=== PATIENT | male | born 1930 | race Caucasian/White ===

== ENCOUNTER → 2016-06-14 | Outpatient (CLI) | payer BC, MEDICARE ==
[~2016-06-14] MED LIST: ALLO100T PO; ASPI-535 PO; ASPI325T32 PO; CALC600T5 PO; CELE200C PO; EZET1TAB10 PO; HYDR-906 PO; MULT-761 PO; PANT40TA4 PO; PIOG30TA2 PO; RAMI10CA48 PO; SITA100T8 PO; TRAM50TA2 PO; TRIA1CAP PO; VIT500LI PO
== END | disposition home or self-care (01) ==
LOC: HKI 09:34
PROVIDERS: ATTEND Orthopaedic Surgery
DX: Z01.818 Encounter for other preprocedural examination (principal); M16.11 Unilateral primary osteoarthritis, right hip; M25.551 Pain in right hip
CPT/HCPCS: G0463

== ENCOUNTER 2016-06-20 05:53 | Inpatient (IN) | payer MEDICARE, BC ==
[2016-06-19 10:23] VITALS: BMI 23.7
[2016-06-20] VITALS (23 sets, daily range): BP systolic 91–146; BP diastolic 37–62; PULSE 55–76; RESP 10–19; Ht 179.1 cm; Wt 72.9 kg
[~2016-06-20] VITALS: Ht 179.1 cm; Wt 72.9 kg
[2016-06-20] MEDS ORDERED: VANCOMYCIN 1 GM/NS 250 ML X1 BEFORE INCISION IVPB ONE (06:00)
[2016-06-20] MEDS ORDERED: TRANEXAMIC ACID 750 MG in SOD CHLORIDE 0.9% 92.5 ML IV ONE (06:00)
[2016-06-20] MEDS ORDERED: BUPIVACAINE LIPOSOME/PF 266 MG/20 ML VIAL INFIL SCH (06:00)
[2016-06-20] MEDS ORDERED: oxyCODONE (CR) 10 MG TAB [oxyCONTIN] X1 DOSE PO ONE (06:00)
[2016-06-20] MEDS ORDERED: EXPAREL NOTE (BUPIVICAINE LIPOSOMAL) XX SCH (06:00)
[2016-06-20] MEDS ORDERED: PREGABALIN 300 MG PO X1 PO ONE (06:00)
[2016-06-20] MEDS ORDERED: traMADOL 50 MG TAB X 1 DOSE PO ONE (06:00)
[2016-06-20] MEDS ORDERED: CELECOXIB 400 MG PO X1 DOSE PO ONE (06:00)
[2016-06-20] MEDS ORDERED: TRANEXAMIC ACID 750 MG in SOD CHLORIDE 0.9% 100 ML IVPB SCH (06:00)
[2016-06-20] MEDS: LACTATED RINGER'S 1,000 ML IV SCH ×5 (06:14→23:00)
[2016-06-20] MEDS ORDERED: BACITRACIN 50000 UNITS INJ ONE (06:42)
[2016-06-20] MEDS ORDERED: SODIUM CL BACTERIOSTATIC 30 ML INJ ONE (06:49)
[2016-06-20] MEDS ORDERED: POLYMYXIN B 500000 UNIT INJ ONE (06:49)
[2016-06-20] MEDS ORDERED: HEPARIN 1000 UNITS/ML 10 ML INJ ONE (06:49)
[2016-06-20] MEDS ORDERED: VANCOMYCIN 1 GM INJ ONE (06:50)
[2016-06-20] MEDS ORDERED: MIDAZOLAM 1 MG/ML 2 ML INJ ONE (07:02)
[2016-06-20] MEDS ORDERED: FENTAnyl 50 MCG/ML VIAL ONE (07:02)
--- NOTE | 2016-06-20 07:12 | HPN ---
Date/Time of Note Date/Time of Note DATE: 06/20/16 TIME: 07:11 Interval H&P Admission Note Pt. seen H&P reviewed: No system changes No change from 06/13/16 H&P by ROBIN Reddy MD Jun 20, 2016 07:12
[2016-06-20] MEDS ORDERED: ASPI-535 PO (07:24)
[2016-06-20] MEDS ORDERED: VIT500LI PO (07:24)
[2016-06-20] MEDS ORDERED: MULT-761 PO (07:24)
[2016-06-20] MEDS ORDERED: CALC600T5 PO (07:24)
[2016-06-20] MEDS ORDERED: ALLO100T PO (07:24)
[2016-06-20] MEDS ORDERED: SITA100T8 PO (07:24)
[2016-06-20] MEDS ORDERED: RAMI10CA48 PO (07:24)
[2016-06-20] MEDS ORDERED: EZET1TAB10 PO (07:24)
[2016-06-20] MEDS ORDERED: PANT40TA4 PO (07:24)
[2016-06-20] MEDS ORDERED: PIOG30TA2 PO (07:24)
[2016-06-20] MEDS ORDERED: CELE200C PO (07:24)
[2016-06-20] MEDS ORDERED: TRIA1CAP PO (07:24)
[2016-06-20] MEDS ORDERED: PHENYLephrine (100 MCG/ML) 5ML SYG ONE (07:34)
[2016-06-20] MEDS ORDERED: MEPERIDINE 100 MG INJ ONE (07:44)
[2016-06-20] MEDS ORDERED: DEXAMETHASONE 4 MG/ML 1 ML INJ ONE (07:46)
[2016-06-20] MEDS: PAIN COCKTAIL - VANCOMYCIN IRR SCH ×14 (09:15→16:07)
[2016-06-20] MEDS ORDERED: ONDANSETRON 4 MG INJ ONE (09:22)
--- NOTE | 2016-06-20 09:26 | RADRPT ---
PROCEDURE: X-ray fluoroscopy guidance CLINICAL INDICATION: Pain TECHNIQUE: Fluoroscopic guidance was utilized for right hip replacement. COMPARISON: None available FINDINGS: Fluoroscopic guidance was provided. 0.6 minutes of fluoroscopy time was utilized for the procedure. 15 images were obtained during the procedure in progress. Cumulative dose is 7.06 mGy and 0.209 m Gym2. IMPRESSION: 1. X-ray fluoroscopic guidance, as above. RPTAT: QQ .Ramirez Laura MD, Date Time Electronically viewed and signed by .Ramirez Laura MD, MD on 06/20/2016 09:26 .R/
[2016-06-20] MEDS ORDERED: FENTAnyl 50 MCG/ML VIAL IV PRN (09:30)
[2016-06-20] MEDS ORDERED: ONDANSETRON 4 MG INJ IV PRN ×2 (09:30→10:00)
[2016-06-20] MEDS ORDERED: HYDROmorphONE (0.2 MG/ML) 10ML SYG IV PRN ×2 (09:30)
[2016-06-20] MEDS ORDERED: METOCLOPRAMIDE 10 MG INJ IV PRN (09:30)
[2016-06-20] MEDS ORDERED: DIPHENHYDRAMINE 50 MG INJ IV PRN (09:30)
[2016-06-20] MEDS ORDERED: ETOMIDATE 20 MG INJ ONE (09:31)
[2016-06-20] MEDS ORDERED: LIDOCAINE 2% (SDV) 5 ML INJ ONE (09:31)
[2016-06-20] MEDS ORDERED: ROCURONIUM 50 MG INJ ONE (09:31)
[2016-06-20] MEDS ORDERED: CEFAZOLIN 1 GM INJ ONE (09:32)
[2016-06-20] MEDS ORDERED: PROPOFOL 100 ML ONE (09:42)
[2016-06-20] MEDS ORDERED: HYDROmorphONE 1 MG/ML SYG IV PRN (10:00)
[2016-06-20] MEDS ORDERED: BISACODYL 10 MG SUPP PR PRN (10:00)
[2016-06-20] MEDS ORDERED: oxyCODONE 5 MG TAB PO PRN ×2 (10:00)
[2016-06-20] MEDS ORDERED: NACL 0.9% 3 ML SYG IV SCH (10:00)
[2016-06-20] MEDS ORDERED: MAGNESIUM HYDROXIDE 30ML CUP PO PRN (10:00)
[2016-06-20] MEDS ORDERED: NA PHOSPHATE/BIPHOS 133 ML ENEMA PR PRN (10:00)
[2016-06-20] MEDS ORDERED: DIPHENHYDRAMINE 25 MG CAP PO PRN (10:00)
--- NOTE | 2016-06-20 10:12 | OPPN ---
Date/Time of Note Date/Time of Note DATE: 06/20/16 TIME: 10:10 Operative/Procedure Note Dictation # [id number] Pre-Operative Diagnosis Right Hip OA Post-Operative Diagnosis Same Procedure Right Anterior JUSTEN Surgeon: ROBIN TRAN MD Texture Artist: NADIRA DONOHUE PA-C Anesthesiologist: RADHA BORRERO MD Findings Severe OA Blood Usage/Administration None Implants/Grafts Depuy JUSTEN Estimated blood loss: 250 - 300 ml's Drains Hemovac x 1 Specimens Femoral Head Complications: None Anesthesia type: spinal ROBIN TRAN MD Jun 20, 2016 10:12
[2016-06-20] MEDS ORDERED: ASPIRIN (EC) 325 MG TAB PO ONE (10:30)
[2016-06-20 10:33] LABS: HEMATOCRIT 37.3 % (42.0-52.0); HEMOGLOBIN 11.9 g/dl (14.0-18.0)
[2016-06-20 10:34] LABS: POTASSIUM 4.9 mmol/L (3.5-5.1)
[2016-06-20 10:41] LABS: CALCIUM 9.1 mg/dl (8.4-10.2); CREATININE 1.59 mg/dl (0.61-1.24)
--- NOTE | 2016-06-20 10:45 | PN ---
Date/Time of Note Date/Time of Note DATE: 06/20/16 TIME: 10:43 Assessment/Plan Lines/Catheters IV Catheter Type (from Nrsg): Peripheral IV Assessment/Plan Assessment/Plan Stable in PACU, s/p right anterior JUSTEN -cont Vanco -ASA/SCDs for DVT prophylaxis -pain meds -OOB with PT -monitor drain -check AM labs -remove treadwell in AM XR of the right hip is pending at this time Subjective 24 Hr Interval Summary Doing well in PACU. Denies pain. Moving all extremities. Exam/Review of Systems Vital Signs Vitals Vital Signs Date Time Temp Pulse Resp B/P Pulse Ox O2 Delivery O2 Flow Rate FiO2 06/20/16 10:25 56 12 116/44 100 Mask 10.0 06/20/16 10:06 98.0 Exam Free Text/Dictation Dressing dry Incision clean, dry, and intact without redness or drainage 5/5 Quadriceps, Tibialis Anterior, EHL, Gastroc, Soleus, Peroneals Normal sensation Palpable DT/PT, CR <2 sec No distal edema; Results Result Diagram: 06/20/16 1015 06/20/16 1015 NADIRA DONOHUE PA-C Jun 20, 2016 10:45
--- NOTE | 2016-06-20 11:36 | RADRPT ---
PROCEDURE: XR pelvis. CLINICAL INDICATION: Postoperative evaluation TECHNIQUE: AP view of the pelvis was performed. COMPARISON: None. FINDINGS: Right hip arthroplasty is in place, in anatomic position. There is no acute fracture or dislocation . Normal postoperative changes are identified in the adjacent soft tissues. Surgical drain is in p lace. There is mild joint space narrowing and osteophyte formation involving the left hip. No radi odense foreign body is identified. There is degenerative spondylosis of the lower lumbar spine. IMPRESSION: 1. Unremarkable right hip arthroplasty postoperative appearance, as above. RPTAT: QQ .Ramirez Laura MD, MD Date Time Electronically viewed and signed by .Ramirez Laura MD, on 06/20/2016 11:36 .R/
--- NOTE | 2016-06-20 11:49 | OPR ---
DATE OF OPERATION: 06/20/2016 PREOPERATIVE DIAGNOSIS: Right hip osteoarthritis. POSTOPERATIVE DIAGNOSIS: Right hip osteoarthritis. OPERATION PERFORMED: Right anterior total hip arthroplasty. SURGEON: Robin Brito MD DISTRICT CAPTAIN: CHRISTOPHER Berrios COMPONENTS USED: DePuy size 52 mm Gription Dodge cup, 52/36 neutral AltrX polyethylene liner, size 5 standard Actis stem and a 36 +1.5 ceramic head. ANESTHESIA: Spinal plus general endotracheal intubation plus periarticular injection. ANESTHESIOLOGIST: Dr. Fraga. ESTIMATED BLOOD LOSS: 300 mL INTRAVENOUS FLUIDS: 1600 mL crystalloid. SPECIMENS: Femoral head. DRAINS: Hemovac x1. COMPLICATIONS: None. DISPOSITION: The patient tolerated the procedure well and was taken to the recovery room in stable condition. INDICATIONS: The patient is an 86-year-old gentleman who has had progressive worsening pain in the right hip with radiographic evidence of severe osteoarthritis. He has failed nonsurgical means of treatment to control his pain including activity modifications, pain medications and ambulatory assist devices. Despite these measures, he has had worsening pain and I felt he would benefit from a total hip arthroplasty through an anterior approach. The risks, benefits, and alternatives of the procedure were explained in detail to the patient. I explained the risks of the surgery to include, but not be limited to: bleeding and possible need for blood transfusion; infection; pain; stiffness; neurovascular injury with possible numbness, weakness, and/or paralysis anywhere from the hip down to the toes; fracture; instability; dislocation; leg length inequality; wear and/or loosening of the prosthesis and possible need for future revision; blood clots; pulmonary embolism; and anesthetic complications such as heart attack, stroke, GI bleed, pneumonia, and/ or . Ample time was allowed for the patient to ask questions, all of which were addressed and answered. The patient understood the risks involved and wished to proceed. Informed consent was signed prior to the procedure. PROCEDURE: The patient's right hip was initialed with a marking pen in the preoperative area to identify the correct operative site. The patient was brought to the operating room and transferred from the [facility] to the [facility] where a spinal anesthetic was administered. The patient was then anesthetized and intubated. A Bryant catheter was placed. Both feet were placed into well padded boots which were then placed into the leg holders of the traction booms. A timeout was performed to confirm that the right side was the correct operative site. The patient was given 2 g of intravenous Ancef within one hour prior to the procedure. The operative hip was prepped and draped in the usual sterile fashion. A 10 cm oblique incision was made over the anterior aspect of the hip and carried down through subcutaneous tissue and fat with sharp dissection. The tensor fascia tee was incised along the length of the wound. The tensor fascia muscle was retracted laterally and the sartorius medially. The anterior circumflex vessels were identified and tied off with 2-0 silk suture and coagulated with the Tissue Link lead android developer. The rectus femoris was elevated off the anterior capsule and an anterior capsulectomy performed. A femoral neck osteotomy was made and the head removed from the acetabulum. The acetabulum was denuded of cartilage circumferentially, as was the femoral head. Retractors were placed around the acetabulum. The remnants of the labrum and ligamentum teres were excised. I reamed the acetabulum to the medial wall and then went into an anatomic position and increased the reamer size in 2 mm increments until I got a good bite and was down to bleeding subchondral bone. The Dodge cup was opened and impacted into the acetabulum and sat flush circumferentially, getting a good bite. C-arm imaging showed it had about 40 to 45 degrees of abduction and 20 degrees of anteversion. The real liner was opened and impacted into the acetabulum and sat flush circumferentially. Attention was turned towards the femur. The operative leg was carefully lowered to the floor with the leg adducted. The foot was then externally rotated to approximately 110 degrees. A posteromedial release was performed to optimize exposure. The femoral hook was placed underneath the proximal femur and the hydraulic lift was then used to elevate the femur up out of the wound. The cookie cutter osteotome was used to remove the remaining overhanging greater trochanter. The femur was then broached, going up in one size increments until it sat flush with the neck cut and a stable fit was achieved. The trial neck and head were assembled and reduced into the acetabulum. Fluoroscopic imaging showed the components to be in good position and the leg lengths and offsets to be equal. At this point, the trial was dislocated and the trial broach removed. The canal was irrigated and dried. The real stem was opened and impacted into the femur. The trunnion was irrigated and dried, and the real femoral head was impacted onto the trunnion, and reduced into the acetabulum. The soft tissues were infiltrated with a mixture of 150 mg of 0.5% Bupivacaine, 8 mg of Duramorph, 300 mcg of epinephrine, 30 mg of Toradol, 100 mcg of clonidine, 750 mg of cefuroxime and 86 mL of normal saline, followed by an injection of 266 mg of liposomal Bupivacaine. At this point the hip was irrigated with a mixture of betadine/saline and then antibiotic saline with pulsatile lavage. A Hemovac drain was placed in the deep portion of the wound and brought out the anterolateral thigh. There was good hemostasis. The tensor fascia tee was repaired with a running #1 Vicryl. The deep fat layer was irrigated and closed with 2-0 Stratafix and the subcutaneous layer closed with 3 -0 Stratafix and the skin was sealed with Prineo Dermabond. The drain was secured with 3-0 nylon. The sponge and needle counts were correct at the end of the case. The wound was covered with an occlusive dressing. The patient was awakened, extubated, and taken to the recovery room in stable condition. Dictated By: ROBIN ESCOBAR/ELIDA Conf#: [id number] DID#: [id number] MTDD
--- NOTE | 2016-06-20 13:05 | CONS ---
DATE OF ADMISSION: 06/20/2016 DATE OF CONSULTATION: 06/20/2016 TYPE OF CONSULTATION: Postoperative. Thank you very much for allowing me to evaluate this 86-year-old male who just underwent right hip a rthroplasty. HISTORICAL EVENTS: As you well know, this patient has had progressive disabling pain involving his right hip, and for this elected to proceed with surgery. Postoperatively, in recovery, he denies co ugh, wheezing, shortness of breath, nausea, vomiting, abdominal or chest pain. ALLERGIES: INCLUDE: 1. NIACIN. 2. PENICILLIN. 3. SIMVASTATIN. 4. EZETIMIBE. PAST MEDICAL HISTORY: Includes: 1. Tissue aortic valve replacement. 2. Diabetes type 2. 3. Hypertension. 4. Mild renal insufficiency. 5. Hyperuricemia 6. Status post TURP. 7. Monoclonal gammopathy. 8. History of right bundle branch block pattern. 9. History of asthma. 10. Status post right carpal tunnel release. SOCIAL HISTORY: Does not drink or use alcohol. MEDICATIONS 1. Allopurinol 100 mg per day. 2. Januvia 100 mg per day. 3. Protonix 40 mg per day. 4. Actos 30 mg per day. 5. Ramipril 10 mg per day. 5. Simvastatin 40 mg per day. 6. Triamterene 37.5/25 mg daily. 7. Aspirin 81 day. PHYSICAL EXAMINATION: GENERAL: [place] male in no acute distress. VITAL SIGNS: BP 128/80, pulse 70, respirations are 20, he was afebrile. EYES: Extraocular muscles were full. NOSE, MOUTH, AND THROAT: Normal. NECK: Supple. There was no jugular venous distention, thyroid enlargement or adenopathy. Carotids 2+. LUNGS: Clear. HEART: Rhythm regular, no murmur. No third or fourth sound. ABDOMEN: Nontender. Liver and spleen were not palpable. No masses or tenderness were noted. EXTREMITIES: No edema, no calf tenderness. NEUROLOGIC: No lateralizing motor weakness. IMPRESSION: 1. Stable postop right hip replacement. 2. History of diabetes. Will continue his diabetic medications and monitor sugars a.c. t.i.d. usin g short-acting insulin to cover elevated sugars. 3. Hyperlipidemia to continue statin. 4. We will follow along daily for signs and symptoms of thromboembolic disease despite an appropria te thrombosis prophylaxis. Dictated By: LEIGHA YORK MD MR/NTS Conf#: [id number] DID#: [id number] CC: ROBIN TRAN MD;*[facility]*
[2016-06-20] MEDS: ACETAMINOPHEN 1000MG/100ML IV 100 ML IVPB SCH ×3 (15:11→23:55)
[2016-06-20] MEDS: traMADol 50 MG TAB PO SCH ×2 (15:11→18:08)
[2016-06-20] MEDS: PANTOPRAZOLE (EC) 40 MG TAB PO SCH (18:08)
[2016-06-20] MEDS: INSULIN ASPART [NOVOLOG] 3 ML PEN SC SCH (18:12)
[2016-06-20] MEDS: VANCOMYCIN 1 GM (PMX) 250 ML IVPB SCH (20:28)
[2016-06-20] MEDS: ATORVASTATIN 20 MG TAB PO SCH (21:17)
[2016-06-20] MEDS: DOCUSATE SODIUM 100 MG CAP PO SCH (21:17)
[2016-06-20] MEDS: PREGABALIN 25 MG CAP PO SCH (21:18)
[2016-06-21] VITALS: BP 104/51; RESP 18
[2016-06-21] MEDS: LACTATED RINGER'S 1,000 ML IV SCH ×6 (01:59→22:00)
[2016-06-21 05:21] LABS: POTASSIUM 4.9 mmol/L (3.5-5.1)
[2016-06-21 05:23] VITALS: BP 105/50; PULSE 63; RESP 20
[2016-06-21 05:24] LABS: CREATININE 1.68 mg/dl (0.61-1.24)
[2016-06-21 05:25] LABS: CALCIUM 8.8 mg/dl (8.4-10.2); MAGNESIUM 1.9 mg/dl (1.7-2.5)
[2016-06-21 05:27] LABS: HEMATOCRIT 34.6 % (42.0-52.0)
[2016-06-21] MEDS: PANTOPRAZOLE (EC) 40 MG TAB PO SCH ×2 (05:29→18:21)
[2016-06-21] MEDS: ACETAMINOPHEN 1000MG/100ML IV 100 ML IVPB SCH (05:29)
[2016-06-21] MEDS: traMADol 50 MG TAB PO SCH ×5 (05:29→23:53)
[2016-06-21] MEDS ORDERED: GLUCAGON 1 MG INJ IM PRN (07:00)
[2016-06-21] MEDS ORDERED: GLUCOSE GEL 15 GRAM TUBE PO PRN ×2 (07:00)
[2016-06-21] MEDS ORDERED: GLUCOSE GEL 15 GRAM TUBE BUCCAL PRN (07:00)
[2016-06-21] MEDS ORDERED: DEXTROSE 50% 50 ML SYRINGE IV PRN ×2 (07:00)
[2016-06-21 07:19] LABS: ADD UMIC YES; URINE BILIRUBIN (Dip) NEGATIVE (NEGATIVE); URINE BLOOD (Dip) 1+ (NEGATIVE); URINE COLOR LT. YELLOW (YELLOW); URINE GLUCOSE (Dip) NEGATIVE (NEGATIVE); URINE KETONES (Dip) NEGATIVE (NEGATIVE); URINE LEUKOCYTE ESTERASE (Dip) NEGATIVE (NEGATIVE); URINE NITRITE (Dip) NEGATIVE (NEGATIVE); URINE TOTAL PROTEIN (Dip) NEGATIVE (NEGATIVE); URINE UROBILINOGEN (Dip) 0.2 E.U./dL (0.1-1.0)
[2016-06-21] MEDS: INSULIN ASPART [NOVOLOG] 3 ML PEN SC SCH ×3 (07:20→17:25)
--- NOTE | 2016-06-21 07:49 | PDOCDIS ---
Discharge Instructions DIAGNOSIS Discharge Diagnosis: s/p right anterior JUSTEN CONDITION Patient Condition: Good HOME CARE INSTRUCTIONS: Diet Instructions: RegularSpecial Diet: CLEAR ACTIVITY: Activity Restrictions: Slowly Increase Activity Rest between Activity Avoid heavy lifting Do not operate Machinery Do not operate Power Tool Avoid Heavy Housework Keep Limb Elevated Bathing Restrictions: Shower FOLLOW UP/APPOINTMENTS Appointments follow up with Dr. Brito in the office on 07/01/16 OTHER ORDERS: Other Orders: S/P Anterior JUSTEN Physical Therapy: Three times per week at home x 2 weeks Daily in Rehab/SNF (if applicable) WB STATUS: WBAT Strengthening exercises for both upper and un-operated lower extremities. 1. Gait training with front wheeled walker 2. Wide base gait, no pivot turns. 3. Abductor strengthening. 4. Quadriceps and hamstring strengthening. 5. May switch to cane in contra lateral hand 6 weeks after surgery. 6. Physical Therapy can open case if nursing is not available. 7. Ice Packs while at rest to surgical wound for 20 minutes, 3 times/day. 8. Patient requires mobile SCDs to reduce risk of developing DVT following JUSTEN. Patient will use the mobile SCDs for 30 days postoperatively. Hip Precautions: No posterior hip precautions. Bathing assistance by home health aide twice weekly if Medicare patient. Occupational Therapy: Evaluation for assistive devices and ADL training. Wound Care: Keep incision dry & covered with Tegaderm until first visit with Dr. Brito Anticoagulation Orders: Enteric Coated Aspirin 325 mg po bid x 6 weeks from date of surgery Follow-up:Call for an appointment with Dr. Brito in 1 week after discharged from hospital at DME Orders: NEELAM, 3-in-1 Commode, Mobile SCDs NADIRA DONOHUE PA-C Jun 21, 2016 07:49
[2016-06-21] MEDS ORDERED: ASPI325T32 PO (07:51)
[2016-06-21] MEDS ORDERED: HYDR-906 PO (07:51)
[2016-06-21] MEDS ORDERED: TRAM50TA2 PO (07:51)
[2016-06-21 08:25] VITALS: BP 111/52; RESP 18
--- NOTE | 2016-06-21 08:32 | PN ---
Date/Time of Note Date/Time of Note DATE: 06/21/16 TIME: 08:31 Assessment/Plan Lines/Catheters IV Catheter Type (from Nrsg): Peripheral IV Bryant in Place (from Nrsg): Yes Assessment/Plan Assessment/Plan Stable POD #1 s/p right anterior JUSTEN -d/c abx -pain meds -ASA/SCDs -OOB with PT -drain removed -check AM labs -d/c planning. Will likely go to [facility] Subjective 24 Hr Interval Summary Doing well. No acute overnight events. Denies significant pain. Moving all extremities. VSS, afebrile Exam/Review of Systems Vital Signs Vitals Vital Signs Date Time Temp Pulse Resp B/P Pulse Ox O2 Delivery O2 Flow Rate FiO2 06/21/16 08:25 97.8 62 18 111/52 99 06/21/16 05:23 Nasal Cannula 2.0 Intake and Output 06/20/16 06/20/16 06/21/16 15:00 23:00 07:00 Intake Total 1750 ml 1270 ml 1150 ml Output Total 790 ml 430 ml 920 ml Balance 960 ml 840 ml 230 ml Results Result Diagram: 06/21/16 0426 06/21/16 0426 NADIRA DONOHUE PA-C Jun 21, 2016 08:32
[2016-06-21] MEDS: VANCOMYCIN 1 GM (PMX) 250 ML IVPB SCH (08:54)
[2016-06-21] MEDS: CELECOXIB 200 MG CAP PO SCH (08:57)
[2016-06-21] MEDS: PIOGLITAZONE 30 MG TAB PO SCH (08:57)
[2016-06-21] MEDS: PREGABALIN 25 MG CAP PO SCH ×2 (08:57→21:08)
[2016-06-21] MEDS: DOCUSATE SODIUM 100 MG CAP PO SCH ×2 (08:57→20:59)
[2016-06-21] MEDS: ASPIRIN (EC) 325 MG TAB PO SCH ×2 (08:57→20:59)
[2016-06-21] MEDS: CALCIUM CARBONATE 1.25 GM TAB PO SCH (08:57)
[2016-06-21] MEDS: EZETIMIBE 10 MG TAB PO SCH (08:57)
[2016-06-21] MEDS: ALLOPURINOL 100 MG TAB PO SCH (08:57)
[2016-06-21] MEDS: BENAZEPRIL 20 MG TAB PO SCH (09:00)
[2016-06-21] MEDS ORDERED: [UNRECOGNIZED DRUG - OTHER] PO SCH (09:00)
--- NOTE | 2016-06-21 13:57 | CONS ---
Date/Time of Note Date/Time of Note DATE: 06/21/16 TIME: 13:51 Assessment/Plan Assessment/Plan Chief Complaint/Hosp Course 1. he is 1 day post op a R JUSTEN , he is doing well . 2. CKD , renal function is stable . 3. h/o peripheral neuropathy . 4. S/P AVR . Problems: Consultation Date/Type/Reason Admit Date/Time Jun 20, 2016 at 05:53 Initial Consult Date 24 HR Interval Summary Free Text/Dictation He is 1 day post op a R JUSTEN . He is doing well . He denies pain . Constitutional: improved, no complaints Exam/Review of Systems Vital Signs Vitals Vital Signs Date Time Temp Pulse Resp B/P Pulse Ox O2 Delivery O2 Flow Rate FiO2 06/21/16 08:25 97.8 62 18 111/52 99 06/21/16 05:23 Nasal Cannula 2.0 Intake and Output 06/20/16 06/20/16 06/21/16 15:00 23:00 07:00 Intake Total 1750 ml 1270 ml 1150 ml Output Total 790 ml 430 ml 920 ml Balance 960 ml 840 ml 230 ml Exam Constitutional: alert, oriented, well developed Psych: nl mood/affect, no complaints Respiratory: clear to auscultation, normal air movement Cardiovascular: nl pulses, regular rate and rhythm Gastrointestinal: soft Musculoskeletal: nl extremities to inspection Results Result Diagram: 06/21/16 0426 06/21/16 0426 Results 24 hrs Laboratory Tests Test 06/20/16 17:20 06/21/16 04:26 06/21/16 05:00 06/21/16 08:06 Bedside Glucose 164 96 Anion Gap 10 Blood Urea Nitrogen 33 H Calcium Level 8.8 Carbon Dioxide Level 29 Chloride Level 102 Creatinine 1.68 H Glucose Level 103 # Hematocrit 34.6 L Hemoglobin 11.0 L Magnesium Level 1.9 Phosphorus Level 4.0 Potassium Level 4.9 Sodium Level 136 Urine Bilirubin NEGATIVE Urine Clarity CLEAR Urine Color LT. YELLOW Urine Epithelial Cells RARE Urine Glucose NEGATIVE Urine Hemoglobin 1+ H Urine Ketones NEGATIVE Urine Leukocyte Esterase NEGATIVE Urine Microscopic RBC 2-5 Urine Microscopic WBC 0-2 Urine Nitrite NEGATIVE Urine Specific Plummer <=1.005 L Urine Total Protein NEGATIVE Urine Urobilinogen 0.2 E.U./dL Urine pH 5.5 Test 06/21/16 12:20 Bedside Glucose 110 Medications Medications Current Medications Lactated Ringer's (Lr) 1,000 ml @ 100 mls/hr Q10H IV Last administered on 23:00; Admin Dose 100 MLS/HR; Start 06/20/16 at 06:00 Miscellaneous Information 1 ea NOTE XX ; Start 06/20/16 at 06:00; Stop 06/23/16 at 05:59 Allopurinol (Zyloprim) 100 mg DAILY PO Last administered on 06/21/16 08:57; Admin Dose 100 MG; Start 06/21/16 at 09:00 Pioglitazone HCl (Actos) 30 mg DAILY PO Last administered on 06/21/16 08:57; Admin Dose 30 MG; Start 06/21/16 at 09:00 Calcium Carbonate (Oyster Shell Calcium) 1.25 gm DAILY PO Last administered on 06/21/16 08:57; Admin Dose 1.25 GM; Start 06/21/16 at 09:00 Atorvastatin Calcium (Lipitor) 20 mg DAILY@21 PO Last administered on 06/20/16 21:17; Admin Dose 20 MG; Start 06/20/16 at 21:00 Benazepril HCl 20 mg 20 mg DAILY PO ; Start 06/21/16 at 09:00 Lactated Ringer's (Lr) 1,000 ml @ 125 mls/hr Q8H IV Last administered on 10:45; Admin Dose 125 MLS/HR; Start 06/20/16 at 09:59 Celecoxib (Celebrex) 200 mg DAILY PO Last administered on 06/21/16 08:57; Admin Dose 200 MG; Start 06/21/16 at 09:00 Tramadol HCl (Ultram) 50 mg Q6 PO Last administered on 06/21/16 12:28; Admin Dose 50 MG; Start 06/20/16 at 12:00; Stop 06/23/16 at 11:59 Oxycodone HCl (Roxicodone) 5 mg Q4H PRN PO PAIN LEVEL 1-3; Start 06/20/16 at 10: 00 Oxycodone HCl (Roxicodone) 10 mg Q4H PRN PO PAIN LEVEL 4-7; Start 06/20/16 at 10 :00 Hydromorphone HCl (Dilaudid) 1 mg Q3H PRN IV PAIN LEVEL 8-10; Start 06/20/16 at 10:00 Ondansetron HCl (Zofran Inj) 4 mg Q6H PRN IV NAUSEA AND/OR VOMITING; Start 06/20 at 10:00 Bisacodyl (Dulcolax Supp) 10 mg Q12H PRN MA CONSTIPATION; Start 06/20/16 at 10: 00 Magnesium Hydroxide (Milk Of Mag) 30 ml BID PRN PO CONSTIPATION; Start 06/20/16 at 10:00 Sodium Biphosphate/ Sodium Phosphate (Fleet Enema) 133 ml DAILY PRN MA CONSTIPATION; Start 06/20/16 at 10:00 Docusate Sodium (Colace) 100 mg BID PO Last administered on 06/21/16 08:57; Admin Dose 100 MG; Start 06/20/16 at 21:00 Diphenhydramine HCl (Benadryl) 25 mg Q6H PRN PO PRURITUS; Start 06/20/16 at 10: 00 Aspirin (Ecotrin) 325 mg BID PO Last administered on 06/21/16 08:57; Admin Dose 325 MG; Start 06/21/16 at 09:00 Pregabalin (Lyrica) 50 mg BID PO Last administered on 06/21/16 08:57; Admin Dose 50 MG; Start 06/20/16 at 21:00 Pantoprazole (Protonix Tab) 40 mg BID@06,18 PO Last administered on 06/21/16 05:29; Admin Dose 40 MG; Start 06/20/16 at 18:00 EZETIMIBE (Zetia) 10 mg DAILY PO Last administered on 06/21/16 08:57; Admin Dose 10 MG; Start 06/21/16 at 09:00 Miscellaneous Information 1 ea NOTE XX ; Start 06/21/16 at 07:00 Glucose (Glutose) 15 gm Q15M PRN PO DECREASED GLUCOSE; Start 06/21/16 at 07:00 Glucose (Glutose) 22.5 gm Q15M PRN PO DECREASED GLUCOSE; Start 06/21/16 at 07: 00 Dextrose (D50w Syringe) 25 ml Q15M PRN IV DECREASED GLUCOSE; Start 06/21/16 at 07:00 Dextrose (D50w Syringe) 50 ml Q15M PRN IV DECREASED GLUCOSE; Start 06/21/16 at 07:00 Glucagon (Glucagen) 1 mg Q15M PRN IM DECREASED GLUCOSE; Start 06/21/16 at 07:00 Glucose (Glutose) 15 gm Q15M PRN BUCCAL DECREASED GLUCOSE; Start 06/21/16 at 07 :00 PARAMJIT NEVAREZ MD Jun 21, 2016 13:57
[2016-06-21 19:00] VITALS: BP 115/56; RESP 19
[2016-06-21] MEDS: ATORVASTATIN 20 MG TAB PO SCH (21:00)
[2016-06-22] MEDS: LACTATED RINGER'S 1,000 ML IV SCH ×3 (01:40→09:59)
[2016-06-22 05:48] LABS: HEMATOCRIT 34.5 % (42.0-52.0); HEMOGLOBIN 10.9 g/dl (14.0-18.0)
[2016-06-22 06:06] LABS: POTASSIUM 4.3 mmol/L (3.5-5.1)
[2016-06-22 06:09] LABS: CREATININE 1.58 mg/dl (0.61-1.24)
[2016-06-22 06:10] LABS: CALCIUM 8.8 mg/dl (8.4-10.2)
[2016-06-22] MEDS: PANTOPRAZOLE (EC) 40 MG TAB PO SCH (07:01)
[2016-06-22] MEDS: traMADol 50 MG TAB PO SCH ×2 (07:01→12:13)
[2016-06-22] MEDS: INSULIN ASPART [NOVOLOG] 3 ML PEN SC SCH ×2 (07:20→11:10)
[2016-06-22 07:21] VITALS: BP 131/63; RESP 18
--- NOTE | 2016-06-22 08:11 | PN ---
Date/Time of Note Date/Time of Note DATE: 06/22/16 TIME: 08:01 Assessment/Plan VTE Prophylaxis VTE Prophylaxis Intervention: ambulation (With walker), SCD's, other (Aspirin 325 mg twice daily.) Lines/Catheters IV Catheter Type (from Nrsg): Saline Lock Bryant in Place (from Nrsg): No Assessment/Plan Assessment/Plan -Pain Meds as needed -Dress change performed today -ASA for DVT Prophylaxis x 6 weeks outpatient discussed. -Continue monitoring as outpatient on discharge. Will follow up in clinic [address] Brito for removal of Prineo -Follow-up at scheduled postop outpatient appointment or sooner if there is any issue. -Tegaderm dressings given with specific instructions to use as outpatient to keep wound dry while showering until Prineo is moved in around 10 days. -Hip precautions discussed -Patient Stable -Discharge to [facility] pending clearance from internal medicine. Orders given to give patient rectal suppository so patient can have bowel movement. Patient was given Ambien, per patient account and nurse was instructed to discontinue Ambien immediately. Subjective 24 Hr Interval Summary 86-year-old male postop day 2. No pain complaints. Patient is up and out of bed with front wheeled walker. Denies any calf pain, chest pain or shortness of breath. Patient doing well. Patient does state however, he has not had bowel movement since 06/19/2016. Patient confirms that he has had flatulence. Had episode of insomnia last night in which she states that he was given Ambien. Ambien was not effective. Constitutional: BM (Denies BM since 06/19/16), ambulates, flatus Pain Control: well controlled Exam/Review of Systems Vital Signs Vitals Vital Signs Date Time Temp Pulse Resp B/P Pulse Ox O2 Delivery O2 Flow Rate FiO2 06/22/16 07:21 98.0 65 18 131/63 96 06/21/16 05:23 Nasal Cannula 2.0 Intake and Output 06/21/16 06/21/16 06/22/16 15:00 23:00 07:00 Intake Total 250 ml 2580 ml 300 ml Output Total 550 ml 1000 ml Balance 250 ml 2030 ml -700 ml Exam Free Text/Dictation -Hemovac: Removed -Incision: Clean, Dry and Intact without any redness or drainage. Prineo is stable/intact -Thigh soft -5/5 Quadriceps, Tibialis Anterior, EHL Gastrocnemius/Soleus and Peroneals -Normal Sensation -Palpable DP/PT, Capillary Refill <2 secs -No Distal Edema -Negative Tisha Sign/No calf pain -Toes Freely Movable No tenderness to palpation throughout the abdomen. Nondistended abdomen as it is soft. Results Result Diagram: 06/22/1641906/22/16419 Copies To: CC: ROBIN BRITO MD, KERBY PA-C Jun 22, 2016 08:11
[2016-06-22] MEDS: PIOGLITAZONE 30 MG TAB PO SCH (08:36)
[2016-06-22] MEDS: ASPIRIN (EC) 325 MG TAB PO SCH (08:37)
[2016-06-22] MEDS: CELECOXIB 200 MG CAP PO SCH (08:37)
[2016-06-22] MEDS: DOCUSATE SODIUM 100 MG CAP PO SCH (08:37)
[2016-06-22] MEDS: ALLOPURINOL 100 MG TAB PO SCH (08:38)
[2016-06-22] MEDS: EZETIMIBE 10 MG TAB PO SCH (08:38)
[2016-06-22] MEDS: CALCIUM CARBONATE 1.25 GM TAB PO SCH (08:38)
[2016-06-22] MEDS: PREGABALIN 25 MG CAP PO SCH (08:38)
[2016-06-22] MEDS: BENAZEPRIL 20 MG TAB PO SCH (08:38)
--- NOTE | 2016-06-22 13:04 | CONS ---
Date/Time of Note Date/Time of Note DATE: 06/22/16 TIME: 13:03 Assessment/Plan Assessment/Plan Additional Assessment/Plan 1. POD2 - R JUSTEN , doing well 2. CKD - renal function stable. 3. h/o peripheral neuropathy . 4. S/P AVR 5. stable for discharge to [facility] from medical standpoint. Consultation Date/Type/Reason Admit Date/Time Jun 20, 2016 at 05:53 Initial Consult Date 24 HR Interval Summary Free Text/Dictation no complaints, had a BM this morning and urinating well. Constitutional: no complaints Exam/Review of Systems Vital Signs Vitals Vital Signs Date Time Temp Pulse Resp B/P Pulse Ox O2 Delivery O2 Flow Rate FiO2 06/22/16 07:21 98.0 65 18 131/63 96 06/21/16 05:23 Nasal Cannula 2.0 Intake and Output 06/21/16 06/21/16 06/22/16 15:00 23:00 07:00 Intake Total 250 ml 2580 ml 300 ml Output Total 550 ml 1000 ml Balance 250 ml 2030 ml -700 ml Exam Constitutional: alert, oriented, well developed Respiratory: clear to auscultation, normal air movement Cardiovascular: nl pulses, regular rate and rhythm Results Result Diagram: 06/22/16 0420 06/22/16 0420 Results 24 hrs Laboratory Tests Test 06/21/16 18:02 06/21/16 21:00 06/22/16 04:20 06/22/16 08:35 Bedside Glucose 94 143 106 Anion Gap 10 Blood Urea Nitrogen 35 H Calcium Level 8.8 Carbon Dioxide Level 30 Chloride Level 102 Creatinine 1.58 H Glucose Level 94 Hematocrit 34.5 L Hemoglobin 10.9 L Potassium Level 4.3 Sodium Level 138 Test 06/22/16 12:10 Bedside Glucose 131 Medications Medications Current Medications Lactated Ringer's (Lr) 1,000 ml @ 100 mls/hr Q10H IV Last administered on 23:00; Admin Dose 100 MLS/HR; Start 06/20/16 at 06:00 Miscellaneous Information 1 ea NOTE XX ; Start 06/20/16 at 06:00; Stop 06/23/16 at 05:59 Allopurinol (Zyloprim) 100 mg DAILY PO Last administered on 06/22/16 08:38; Admin Dose 100 MG; Start 06/21/16 at 09:00 Pioglitazone HCl (Actos) 30 mg DAILY PO Last administered on 06/22/16 08:36; Admin Dose 30 MG; Start 06/21/16 at 09:00 Calcium Carbonate (Oyster Shell Calcium) 1.25 gm DAILY PO Last administered on 06/22/16 08:38; Admin Dose 1.25 GM; Start 06/21/16 at 09:00 Atorvastatin Calcium (Lipitor) 20 mg DAILY@21 PO Last administered on 21:00; Admin Dose 20 MG; Start 06/20/16 at 21:00 Benazepril HCl 20 mg 20 mg DAILY PO Last administered on 06/22/16 08:38; Admin Dose 20 MG; Start 06/21/16 at 09:00 Lactated Ringer's (Lr) 1,000 ml @ 125 mls/hr Q8H IV Last administered on 10:45; Admin Dose 125 MLS/HR; Start 06/20/16 at 09:59 Celecoxib (Celebrex) 200 mg DAILY PO Last administered on 06/22/16 08:37; Admin Dose 200 MG; Start 06/21/16 at 09:00 Tramadol HCl (Ultram) 50 mg Q6 PO Last administered on 06/22/16 12:13; Admin Dose 50 MG; Start 06/20/16 at 12:00; Stop 06/23/16 at 11:59 Oxycodone HCl (Roxicodone) 5 mg Q4H PRN PO PAIN LEVEL 1-3; Start 06/20/16 at 10: 00 Oxycodone HCl (Roxicodone) 10 mg Q4H PRN PO PAIN LEVEL 4-7; Start 06/20/16 at 10 :00 Hydromorphone HCl (Dilaudid) 1 mg Q3H PRN IV PAIN LEVEL 8-10; Start 06/20/16 at 10:00 Ondansetron HCl (Zofran Inj) 4 mg Q6H PRN IV NAUSEA AND/OR VOMITING; Start 06/20 at 10:00 Bisacodyl (Dulcolax Supp) 10 mg Q12H PRN [place] CONSTIPATION Last administered on 11:15; Admin Dose 10 MG; Start 06/20/16 at 10:00 Magnesium Hydroxide (Milk Of Mag) 30 ml BID PRN PO CONSTIPATION Last administered on 06/22/16 08:39; Admin Dose 30 ML; Start 06/20/16 at 10:00 Sodium Biphosphate/ Sodium Phosphate (Fleet Enema) 133 ml DAILY PRN [place] CONSTIPATION; Start 06/20/16 at 10:00 Docusate Sodium (Colace) 100 mg BID PO Last administered on 06/22/16 08:37; Admin Dose 100 MG; Start 06/20/16 at 21:00 Diphenhydramine HCl (Benadryl) 25 mg Q6H PRN PO PRURITUS; Start 06/20/16 at 10: 00 Aspirin (Ecotrin) 325 mg BID PO Last administered on 06/22/16 08:37; Admin Dose 325 MG; Start 06/21/16 at 09:00 Pregabalin (Lyrica) 50 mg BID PO Last administered on 06/22/16 08:38; Admin Dose 50 MG; Start 06/20/16 at 21:00 Pantoprazole (Protonix Tab) 40 mg BID@06,18 PO Last administered on 06/22/16 07:01; Admin Dose 40 MG; Start 06/20/16 at 18:00 EZETIMIBE (Zetia) 10 mg DAILY PO Last administered on 06/22/16 08:38; Admin Dose 10 MG; Start 06/21/16 at 09:00 Miscellaneous Information 1 ea NOTE XX ; Start 06/21/16 at 07:00 Glucose (Glutose) 15 gm Q15M PRN PO DECREASED GLUCOSE; Start 06/21/16 at 07:00 Glucose (Glutose) 22.5 gm Q15M PRN PO DECREASED GLUCOSE; Start 06/21/16 at 07: 00 Dextrose (D50w Syringe) 25 ml Q15M PRN IV DECREASED GLUCOSE; Start 06/21/16 at 07:00 Dextrose (D50w Syringe) 50 ml Q15M PRN IV DECREASED GLUCOSE; Start 06/21/16 at 07:00 Glucagon (Glucagen) 1 mg Q15M PRN IM DECREASED GLUCOSE; Start 06/21/16 at 07:00 Glucose (Glutose) 15 gm Q15M PRN BUCCAL DECREASED GLUCOSE; Start 06/21/16 at 07 :00 SHAUN MARIE MD Jun 22, 2016 13:04
--- NOTE | 2016-06-25 03:59 | DS ---
DATE OF ADMISSION: 06/20/2016 DATE OF DISCHARGE: 06/22/2016 CONDITION ON DISCHARGE: Stable. ADMITTING DIAGNOSIS: Right hip osteoarthritis. DISCHARGE DIAGNOSIS: Status post right anterior total hip arthroplasty. PROCEDURE PERFORMED: Right anterior total hip arthroplasty. HOSPITAL COURSE: This is an 86-year-old male who was seen in clinic initially complaining of right hip pain. X-rays were obtained and showed advanced osteoarthritis of his right hip, and it was thought he would benefit from a right anterior total hip arthroplasty. On 06/20/2016, the patient was admitted and taken to the operating room where he underwent a right anterior total hip arthroplasty. There were no intraoperative complications. The patient tolerated the procedure well. He was started on aspirin and SCDs for DVT prophylaxis. He remained hemodynamically stable and neurovascularly intact throughout his hospital stay. On postoperative day 1, he began physical therapy and continued to make good progress. He was deemed clinically stable for discharge on postoperative day 2. Prior to transfer, the incision was inspected and noted to be clean, dry, and intact. Dressing changes were done prior to the patient going to the [facility]. LABORATORY ANALYSIS UPON DISCHARGE: Hemoglobin 10.9, hematocrit 34.5. Chemistry panel showed an elevated BUN and creatinine but was otherwise within normal limits. DISCHARGE MEDICATIONS 1. Aspirin 325 2. [place] 5/325 mg. 3. Tramadol 50 mg. Additionally, the patient is to resume all of his normal home medications. DISCHARGE INSTRUCTIONS: The patient will be transferred to the [facility] in stable condition. He is to resume a normal diet. Activity includes weightbearing as tolerated on the right lower extremity. He is to be in physical therapy at the [facility]. He will be discharged home with the medications noted above. Additionally, he is to resume all of his normal home medications. The patient is to call the office or return to the emergency room for any concerns including increased redness, swelling, drainage, or fever or any concerns regarding the operation or site of incision. FOLLOWUP: The patient is to follow up in the office with Dr. Brito on 2016. Dictated By: NADIRA WHITE for ROBIN HOLLEY/ELIDA Conf#: [id number] DID#: [id number] [facility] CENT[facility]arina
== END 2016-06-22 14:35 | DRG 470 ==
LOC: REC 05:53 → MS1 14:45
PROVIDERS: ADMIT Orthopaedic Surgery; ATTEND Orthopaedic Surgery
PROC: 0SR904A Replacement of Right Hip Joint with Ceramic on Polyethylene Synthetic Substitute, Uncemented, Open Approach (ICD-10-PCS; principal; 2016-06-20 07:00)
DX: M16.11 Unilateral primary osteoarthritis, right hip (principal); E11.9 Type 2 diabetes mellitus without complications; I12.9 Hypertensive chronic kidney disease with stage 1 through stage 4 chronic kidney disease, or unspecified chronic kidney disease; Z95.4 Presence of other heart-valve replacement; N18.9 Chronic kidney disease, unspecified
CPT/HCPCS: 72170; 73530; 80048; 81001; 81003; 82962; 83735; 84100; 85014; 85018; 86850; 86900; 86901; 86920; 87081; 87086; 88304; 88311; 97110; 97116; 97162; 97167; 97530; Z7610; C1776; C9290; J0131; J0171; J0690; J0735; J1100; J1644; J1815; J1885; J2175; J2250; J2274; J2370; J2405; J3010; J3370; J7120

== ENCOUNTER → 2016-07-01 | Outpatient (CLI) | payer MEDICARE, BC ==
[~2016-07-01] MED LIST changes: -ASPI-535 PO
--- NOTE | 2016-07-01 11:58 | RADRPT ---
PROCEDURE: XR pelvis/right hip. CLINICAL INDICATION: Hip pain TECHNIQUE: AP pelvis/lateral right hip view performed. COMPARISON: 06/20/2016 FINDINGS: There is a right total hip replacement. There is no evidence of loosening of the prosthesis. There is moderate to severe left hip osteoarthrosis. This is associated with joint space narrowing, subchondral sclerosis, subchondral cyst formation and osteophytosis. There is moderate to severe low er lumbar degenerative disk disease. There is normal osseous mineralization. No fractures or osseou s lesions are identified. The soft tissues are unremarkable. IMPRESSION: Right total hip replacement. Moderate to severe left hip osteoarthrosis. Moderate to severe lower lumbar degenerative disk disease RPTAT: HGDB .Anthony Cintron MD, Date Time Electronically viewed and signed by .Anthony Cintron MD, on 07/01/2016 11:58 .B/
--- NOTE | 2016-07-01 21:48 | HKNOTE ---
DATE OF SERVICE: 07/01/2016 INTERVAL HISTORY: The patient presents today for followup evaluation on his right hip. He is now 11 days status post right anterior total hip arthroplasty. He is doing well overall. He was at the [facility], but has bene released back home. He is ambulatory with a walker, but does not feel like he needs it. Denies any fevers or chills. He has been mildly inconsistent with his aspirin intake. He presents today for a postoperative evaluation. PHYSICAL EXAMINATION: Today, he is alert and oriented x4, and in no acute distress. He is walking with a walker, but is able to ambulate without any assistive device. Exam of the incision demonstrates it to be clean, dry, and intact. It is well healing. There is no erythema or warmth. There is no pus or drainage noted. He does have some mild 2+ pitting edema distally. Homans sign is negative. Compartments are otherwise soft. He is neurovascularly intact distally. IMAGING: X-rays of the right hip are obtained today and reviewed by me. They show good anatomic location of the prosthesis. There is no fracture or dislocation identified. ASSESSMENT: Eleven days status post right anterior total hip arthroplasty. DISCUSSION: The Prineo was removed today and Steri-Strips were applied. The patient does have some dependent edema and, although likelihood DVT is low at this point, we will send him for a stat Doppler to rule out DVT. In lieu of it being negative, he will continue aspirin twice daily for DVT prophylaxis. He is also to continue physical therapy with home health. He can transition to walking with a cane as needed and as instructed by physical therapy. We would like to see him back in 4 weeks for repeat evaluation and x-ray. Dictated By: NADIRA WHITE for ROBIN HOLLEY/ELIDA Conf#: [id number] DID#: [id number] MTDD
== END | disposition home or self-care (01) ==
LOC: HKI 10:39
PROVIDERS: ATTEND Orthopaedic Surgery
DX: Z47.1 Aftercare following joint replacement surgery (principal); Z96.641 Presence of right artificial hip joint
CPT/HCPCS: 73502

== ENCOUNTER → 2016-07-29 | Outpatient (CLI) | END | disposition home or self-care (01) | DX: Z47.1 Aftercare following joint replacement surgery (principal); Z96.641 Presence of right artificial hip joint; M16.0 Bilateral primary osteoarthritis of hip; M51.36 Other intervertebral disc degeneration, lumbar region ==

== ENCOUNTER → 2016-09-30 | Outpatient (CLI) | payer MEDICARE, BC ==
--- NOTE | 2016-09-30 09:17 | RADRPT ---
PROCEDURE: XR pelvis/right hip. CLINICAL INDICATION: Hip pain TECHNIQUE: AP pelvis/AP and lateral right hip views available for review. COMPARISON: 07/29/2016 FINDINGS: There is a right total hip replacement. There is no evidence of loosening of the prosthesis. No hard nagy failure is identified. There is moderate to severe left hip osteoarthrosis. This is associated with joint space narrowing, subchondral sclerosis, subchondral cyst formation and osteophytosis. There is normal osseous mineral ization. No fractures or osseous lesions are identified. There is moderate to severe lower lumbar de generative disk disease. The soft tissues are unremarkable. IMPRESSION: Right total hip replacement. Moderate to severe left hip osteoarthrosis. Moderate to severe lower lumbar degenerative disk disease RPTAT: HGDB .Anthony Cintron MD, Date Time Electronically viewed and signed by .Anthony Cintron MD, on 09/30/2016 09:16 .B/
== END | disposition home or self-care (01) ==
LOC: HKI 08:54
PROVIDERS: ATTEND Orthopaedic Surgery
DX: Z09 Encounter for follow-up examination after completed treatment for conditions other than malignant neoplasm (principal); Z96.641 Presence of right artificial hip joint
CPT/HCPCS: 73502; G0463